=== PATIENT | male | born 1955 | race Caucasian/White ===

== ENCOUNTER 2018-06-14 10:53 | Day surgery (SDC) | payer OTHER ==
[~2018-06-14] VITALS: Ht 182.9 cm; Wt 100.0 kg
[2018-06-14] VITALS (14 sets, daily range): BP systolic 102–131; BP diastolic 59–80; PULSE 73–86; RESP 16–20
[~2018-06-14 10:53] MED LIST: CEFAZOLIN 1 GM INJ ONE
[2018-06-14] MEDS ORDERED: POLYMYXIN/BACITRACIN 1L IRRIG ONE ×2 (13:04→13:49)
--- NOTE | 2018-06-14 13:22 | PREAC ---
Date/Time of Note Date/Time of Note DATE: 06/14/18 TIME: : Anesthesia Eval and Record Evaluation Time Pre-Procedure Interview DATE: 06/14/18 TIME: 13:19 Age 62 Sex male NPO: 8 hrs Preoperative diagnosis left carpometacarpal joint arthritis Planned procedure pyrosphere interposition arthroplasty left carpometacarpal joint Past Medical History Past Medical History: Includes Cardio: Dyslipidemia Neuro: Seizure disorder Hepatic: Hepatitis (C) Surgery & Anesthesia Issues No known issue Meds Anticoagulation: No Beta Ely within 24 hr: No Reason Beta Ely not given: Pt. not on B-Ely Meds reviewed: Yes Allergies Coded Allergies: No Known Allergy (Unverified , 06/14/18) Allergies Reviewed: Yes Labs/Studies Labs Reviewed: Reviewed by anesthesiologist Result Diagram: 06/14/18 1130 06/14/18 1130 Laboratory Tests 06/14/18 11:30 test: N/A Pre-procedure Exam Last vitals Vital Signs Date Temp Pulse Resp B/P (MAP) Pulse Ox O2 O2 Flow FiO2 Time Delivery Rate 06/14/18 98.7 82 17 102/59 96 Room Air 11:49 (73) Airway: Adequate mouth opening, Adequate thyromental dist Mallampati: Mallampati II Teeth: Normal Lung: Normal Heart: Normal ASA Physical Status ASA physical status: 2 Emergency: None Planned Anesthetic General/MAC: LMA Planned Pain Management Parenteral pain med Pre-operative Attestations Prior to commencing anesthesia and surgery, the patient was re-evaluated, there was verification of: *The patient's identity *The results of appropriate recent lab work and preoperative vital signs *The above evaluation not changing prior to induction *Anesthetic plan, risk benefits, alternative and complications discussed with patient/family; questions answered; patient/family understands, accepts and wishes to proceed. AMELIA ROSENBERG MD Jun 14, 2018 13:22
--- NOTE | 2018-06-14 13:28 | HPN ---
Date/Time of Note Date/Time of Note DATE: 06/14/18 TIME: 13:28 Interval H&P Admission Note Pt. seen H&P reviewed: No system changes LÁZARO BETANCOURT MD Jun 14, 2018 13:28
[2018-06-14] MEDS ORDERED: MIDAZOLAM 1 MG/ML 2 ML INJ ONE (13:36)
[2018-06-14] MEDS ORDERED: ROPIVACAINE 0.5 % 30 ML VIAL ONE (13:44)
[2018-06-14] MEDS ORDERED: BUPIVACAINE 0.5% (SDV) 30 ML INJ ONE (13:49)
[2018-06-14] MEDS ORDERED: LIDOCAINE 1% (MPF) 30 ML INJ ONE (13:49)
[2018-06-14] MEDS ORDERED: LIDOCAINE 2% (SDV) 5 ML INJ ONE (13:51)
[2018-06-14] MEDS ORDERED: FENTAnyl 50 MCG/ML VIAL ONE ×2 (13:51→15:17)
[2018-06-14] MEDS ORDERED: ONDANSETRON 4 MG INJ ONE (13:51)
[2018-06-14] MEDS ORDERED: PROPOFOL 20 ML ONE (13:51)
[2018-06-14] MEDS ORDERED: DEXAMETHASONE 4 MG/ML 5 ML INJ ONE (13:52)
[2018-06-14] MEDS ORDERED: FAMOTIDINE 20 MG INJ ONE (13:52)
--- NOTE | 2018-06-14 15:44 | PAC ---
Date/Time of Note Date/Time of Note DATE: 06/14/18 TIME: 15:42 Post-Anesthesia Notes Post-Anesthesia Note Last documented vital signs Vital Signs Date Temp Pulse Resp B/P (MAP) Pulse Ox O2 O2 Flow FiO2 Time Delivery Rate 06/14/18 98.7 82 17 102/59 96 Room Air 11:49 (73) Activity: WNL Respiratory function: WNL Cardiovascular function: WNL Mental status: Baseline Pain reasonably controlled: Yes Hydration appropriate: Yes Nausea/Vomiting absent: Yes Comments BP: 117/75 HR: 84 RR: 16 SaO2: 100% T: 97.9 AMELIA ROSENBERG MD Jun 14, 2018 15:44
[2018-06-14] MEDS ORDERED: DIPHENHYDRAMINE 50 MG INJ IV PRN (16:00)
[2018-06-14] MEDS ORDERED: OXYCODONE/ACETAMINOPHEN (5/325) TAB PO PRN (16:00)
[2018-06-14] MEDS ORDERED: MEPERIDINE 25 MG INJ IV PRN (16:00)
[2018-06-14] MEDS ORDERED: ONDANSETRON 4 MG INJ IV PRN (16:00)
[2018-06-14] MEDS ORDERED: FENTAnyl 50 MCG/ML VIAL IV PRN ×3 (16:00)
[2018-06-14] MEDS ORDERED: PROCHLORPERAZINE 10 MG INJ IV PRN (16:00)
[2018-06-14] MEDS ORDERED: HYDROmorphONE 1 MG/5 ML IV SYRINGE IV PRN ×3 (16:00)
--- NOTE | 2018-06-14 16:16 | OPR ---
DATE OF OPERATION: 06/14/2018 PREOPERATIVE DIAGNOSIS: Arthritis, left thumb carpometacarpal joint. POSTOPERATIVE DIAGNOSIS: Arthritis, left thumb carpometacarpal joint. OPERATION PERFORMED: Resection arthroplasty CMC joint, left thumb, PyroSphere interposition arthroplasty. SURGEON: Lázaro Blum MD [employer] SUPERVISOR: Staff. ANESTHESIOLOGIST: More Puente MD ANESTHESIA TECHNIQUE: General anesthetic by the anesthesiologist, supraclavicular block by anesthesiologist, local anesthetic by the surgeon. SURGICAL PAUSE: I examined the patient in the preop holding area. I farooq in the planned surgical incision. I showed the planned surgical incision to the patient. I confirmed the operative procedure and plan with him awake. This was confirmed witnessed by his national service officer. INFORMED CONSENT: At the time, we scheduled the operative procedure in the office as I do with everybody. I discussed the risks and hazards of surgery, mentioning OP mortality, wound infection, nerve injury, particularly the superficial branch of the radial nerve, dislocation rare, continued pain 10% and every other possibility I could think of to each conversation for each patient is custom . Everybody signs the same exact note. I have 1 note for everybody. The patient was taken to surgery and anesthetized as described above. DESCRIPTION OF PROCEDURE: Sterile prep and drape was performed. Hand was extended with elevation. A pneumatic tourniquet inflated to 250 mmHg. Longitudinal incision was made on the dorsal radial aspect CMC joint, left thumb. Joint was exposed and subperiosteally exposed the course of dorsal along the sides. With an oscillating saw, I removed the subchondral bone of the proximal end of metacarpal, distal end trapezium. I spent a lot of time making sure that all pieces of bits of bone were removed. That is probably the most important step and spent the most time making sure that we got every bit of bone out. X-rays confirmed that having been done. With burs, I created respected cups into the 2 opposing surfaces and finished them with the provided rasp on the [employer] instrument set. We used the trials and determined that the best size was the size 30 implant. We put lidocaine and Marcaine with epinephrine into the wound and let it soak 10 minutes. I removed the lidocaine, I coated the cups with a little bit of bone wax into the surfaces of the cups and then removed it. We inserted a size 30 implant and fit nicely. X-rays had demonstrated the implant to be well seated between the 2 respective bones. I closed the wound in layers with Vicryl deep with thumb brought into abduction in a [id number] stitch and subcuticular. The hand was placed in a bulky cotton dressing with splint. DISCHARGE MEDICATIONS: 1. Hydrocodone with acetaminophen. 2. Keflex. FOLLOWUP: In our office will be in a week. He is in a bulky Rendon type dressing with splint today and in awake, he will be converted to a thumb spica cast for 2 months. The operative procedure is a little over an hour. The patient is comfortable, in recovery. Dictated By: LÁZARO ESTEVEZ/FLORY Conf#: [id number] DID#: [id number]
== END 2018-06-14 17:26 | disposition home or self-care (01) ==
LOC: SDS 10:53
PROVIDERS: ATTEND Orthopaedic Surgery Hand Surgery
DX: M13.842 Other specified arthritis, left hand (principal)
CPT/HCPCS: 25447; 73140; 80053; 85025; 85610; 85730; J0690; J1100; J2250; J2405; J2795; J3010; L8641